=== PATIENT | female | born 1995 ===

== ENCOUNTER 2017-05-19 19:55 | Emergency (ER) | payer SELFPAY ==
[2017-05-19] MEDS ORDERED: Sodium Chloride 0.9% 1,000 ML IV STA (20:33)
--- NOTE | 2017-05-19 20:41 | ED PDOC ---
Arrival/HPI <TicoJosé Miguel - Last Filed: 05/19/17 20:53> - General Historian: Patient <Mike Woods Bob - Last Filed: 05/20/17 03:09> - General Chief Complaint: Abdominal Pain Time Seen by Provider: 05/19/17 20:14 - History of Present Illness Narrative History of Present Illness (Text): 05/19/17 20:37 21yo female with no PMHx who present with complaint of epigastric abdominal pain , nauseea, vomiting, headache x 2days. States abdominal pain is worse postprandial. She denies diarrhea, constipation, melena, hematemesis, hematochezia, chest pain, SOB, sick contact, travel. (Mike Woods A) Past Medical History - Provider Review Nursing Documentation Reviewed: Yes - Infectious Disease Hx of Infectious Diseases: None - Psychiatric Hx Substance Use: No - Anesthesia Hx Anesthesia: No <Mike Woods Bob - Last Filed: 05/20/17 03:09> Family/Social History - Physician Review Nursing Documentation Reviewed: Yes Family/Social History: Unknown Family HX Smoking Status: Never Smoked Hx Alcohol Use: No Hx Substance Use: No <Mike Woods A - Last Filed: 05/20/17 03:09> Allergies/Home Meds <Tico,José Miguel - Last Filed: 05/19/17 20:53> <Mike Woods A - Last Filed: 05/20/17 03:09> Allergies/Adverse Reactions: Allergies No Known Allergies Allergy (Verified 05/19/17 20:05) Review of Systems - Physician Review All systems were reviewed & negative as marked: Yes - Review of Systems Constitutional: Normal Eyes: Normal ENT: Normal Respiratory: Normal Cardiovascular: Normal Gastrointestinal: Abdominal Pain, Nausea, Vomiting. absent: Constipation, Diarrhea, Hematochezia, Hematemesis Genitourinary Female: Normal Musculoskeletal: Normal Skin: Normal Neurological: Normal Endocrine: Normal Hemo/Lymphatic: Normal Psychiatric: Normal <Mike Woods A - Last Filed: 05/20/17 03:09> Vital Signs Temp Pulse Resp BP Pulse Ox 05/20/17 02:33 98.8 F 81 17 106/54 L 100 05/20/17 00:03 100.4 F H 94 H 18 127/64 98 05/19/17 20:05 98.6 F 90 18 111/72 100 Medical Decision Making <José Miguel Doshi - Last Filed: 05/19/17 20:53> <Mike Woods - Last Filed: 05/20/17 03:09> ED Course and Treatment: 05/19/17 23:39 PT presented for stated history. She was hemodynamically stable in ED. Lab was DW the pt. Mild leukocytosis was noted. On re evaluation she notes that she feels much better. She will be DC home with a rx of Pepcid, Zofran and ibuprofen. Advised to f/u with the clinic. TRT ED for any new or worsening symptoms. (Mike Woods) - Lab Interpretations Lab Results: 05/19/17 21:30 05/19/17 21:30 Lab Results 05/19/17 21:30: Sodium 140, Potassium 3.8, Chloride 105, Carbon Dioxide 23, Anion Gap 17, BUN 12, Creatinine 0.6 L, Est GFR ( Amer) > 60, Est GFR ( Non-Af Amer) > 60, Random Glucose 94, Calcium 9.9, Total Bilirubin 0.7, AST 22, ALT 22, Alkaline Phosphatase 64, Total Protein 8.3, Albumin 4.9 H, Globulin 3.4 , Albumin/Globulin Ratio 1.4, Lipase 73 05/19/17 21:30: PT 17.7 H, INR 1.54 H, APTT 28.3 05/19/17 21:30: WBC 13.7 H, RBC 4.74, Hgb 13.3, Hct 40.6, MCV 85.7, MCH 28.1, MCHC 32.8, RDW 13.1, Plt Count 364, MPV 9.4, Gran % 85.5 H, Lymph % (Auto) 10.4 L, [place] % (Auto) 3.9, Eos % (Auto) 0.0 L, Baso % (Auto) 0.2, Gran # 11.73 H, Lymph # 1.4, [place] # 0.5, Eos # 0.0, Baso # 0.03 - RAD Interpretation Radiology Orders: 05/19/17 23:55 ABD & PELVIS IV CONTRAST ONLY [CT] Stat HEAD W/O CONTRAST [CT] Stat - Medication Orders Current Medication Orders: Discontinued Medications Famotidine (Pepcid) 20 mg IVP STAT STA Stop: 05/19/17 20:34 Last Admin: 05/19/17 21:48 Dose: 20 mg IVP Administration Document 05/19/17 21:48 EQ (Rec: 05/19/17 21:48 EQ [id number]) Charges for Administration # of IVP Administrations 1 Sodium Chloride (Sodium Chloride 0.9%) 1,000 mls @ 1,000 mls/hr IV .Q1H STA Stop: 05/19/17 21:32 Last Admin: 05/19/17 21:48 Dose: 1,000 mls/hr eMAR Start Stop Document 05/19/17 21:48 EQ (Rec: 05/19/17 21:49 EQ [id number]) Intravenous Solution Start Date 05/19/17 Start Time 21:49 Ketorolac Tromethamine (Toradol) 30 mg IVP STAT STA Stop: 05/19/17 23:14 Last Admin: 05/19/17 23:46 Dose: 30 mg MAR Pain Assessment Document 05/19/17 23:46 EQ (Rec: 05/19/17 23:46 EQ [id number]) Pain Reassessment Is this a pain reassessment? No Sleep Is patient sleeping during reassessment? 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 <José Miguel Doshi - Last Filed: 05/19/17 20:53> Disposition/Present on Arrival <José Miguel Doshi - Last Filed: 05/19/17 20:53> - Present on Arrival Any Indicators Present on Arrival: No History of DVT/PE: No History of Uncontrolled Diabetes: No Urinary Catheter: No History of Decub. Ulcer: No History Surgical Site Infection Following: None - Disposition Have Diagnosis and Disposition been Completed?: Yes Disposition Time: 03:10 Patient Plan: Discharge <Mike Woods - Last Filed: 05/20/17 03:09> - Disposition Diagnosis: Abdominal pain, Headache Disposition: HOME/ ROUTINE Patient Problems: Current Active Problems Problem Status Onset Abdominal pain Acute Headache Acute Condition: STABLE Discharge Instructions (ExitCare): Acute Headache (ED), Abdominal Pain (ED) Print Language: TONGAN Additional Instructions: Follow up with your doctor Follow BLAND diet Return to ED for any new or worsening symptoms Prescriptions: Famotidine [Pepcid] 20 mg PO DAILY #15 tab Ibuprofen [Motrin Tab] 600 mg PO Q6 #20 tab Ondansetron ODT [Zofran ODT] 4 mg PO Q6 #7 odt Referrals: Jeffrey Rose, [Primary Care Provider] - [place] up [place] [facility] [place] [facility] [place] - Follow up with primary Forms: [employer] (Nigerian)
[2017-05-19 22:12] LABS: BASO # 0.03 K/mm3 (0.0-2.0); BASO % 0.2 % (0.0-3.0); GRAN # 11.73 (1.4-6.5); GRAN % 85.5 % (50.0-68.0); HEMOGLOBIN 13.3 g/dL (12.0-16.0); LYMPH # 1.4 (1.2-3.4); LYMPH % 10.4 % (22.0-35.0); MEAN CELL VOLUME 85.7 fl (80.0-105.0); MEAN CORPUSCULAR HEMOGLOBIN 28.1 pg (25.0-35.0); MEAN CORPUSCULAR HGB CONC 32.8 g/dl (31.0-37.0); MEAN PLATELET VOLUME 9.4 fl (7.0-11.0); MONO # 0.5 (0.1-0.6); MONO % 3.9 % (1.0-6.0); RBC 4.74 10^6/uL (3.5-6.1); RED CELL DISTRIBUTION WIDTH 13.1 % (11.5-14.5); WHITE BLOOD COUNT 13.7 10^3/ul (4.5-11.0)
[2017-05-19 22:21] LABS: ALBUMIN 4.9 g/dL (3.0-4.8); ALT/SGPT 22 U/L (7-56); AST/SGOT 22 U/L (14-36); BLOOD UREA NITROGEN 12 mg/dL (7-21); CALCIUM 9.9 mg/dL (8.4-10.5); GFR AFRICAN-AMERICAN > 60; GFR NON-AFRICAN AMERICAN > 60; INR 1.54 (0.93-1.08); LIPASE 73 U/L (23-300); PARTIAL THROMBOPLASTIN TIME 28.3 Seconds (25.1-36.5); PROTHROMBIN TIME 17.7 SECONDS (9.4-12.5)
[2017-05-19 22:27] LABS: ALB/GLOB RATIO 1.4 (1.1-1.8)
[2017-05-20] MEDS ORDERED: Iohexol 350 MG/100 ML VIAL ONE (00:34)
[2017-05-20 02:34] VITALS: RESP 17
--- NOTE | 2017-05-20 02:52 | CT ---
EXAM: CT Head Without Intravenous Contrast CLINICAL HISTORY: 21 years old, female; Pain; Headache TECHNIQUE: Axial computed tomography images of the head/brain without intravenous contrast. All CT scans at this facility use one or more dose reduction techniques, viz.: automated exposure control; ma/kV adjustment per patient size (including targeted exams where dose is matched to indication; i.e. head); or iterative reconstruction technique. 317 images are submitted. Coronal and sagittal reformatted images were created and reviewed. COMPARISON: No relevant prior studies available. FINDINGS: Brain: Unremarkable. No hemorrhage. No significant white matter disease. No edema. Ventricles: Unremarkable. No ventriculomegaly. Bones/joints: Unremarkable. No acute fracture. Soft tissues: Unremarkable. Sinuses: Unremarkable. No acute sinusitis. Mastoid air cells: Unremarkable. No mastoid effusion. IMPRESSION: No evidence of an acute intracranial hemorrhage, midline shift or mass effect is identified.
--- NOTE | 2017-05-20 03:05 | CT ---
EXAM: CT Abdomen and Pelvis With Intravenous Contrast CLINICAL HISTORY: 21 years old, female; Pain; Abdominal pain TECHNIQUE: Axial computed tomography images of the abdomen and pelvis with intravenous contrast. All CT scans at this facility use one or more dose reduction techniques, viz.: automated exposure control; ma/kV adjustment per patient size (including targeted exams where dose is matched to indication; i.e. head); or iterative reconstruction technique. 546 images are submitted. Coronal and sagittal reformatted images were created and reviewed. CONTRAST: 94 mL of omni 350 administered intravenously. COMPARISON: No relevant prior studies available. FINDINGS: Lower thorax: No acute findings. ABDOMEN: Liver: Fatty liver. Gallbladder and bile ducts: Unremarkable. No ductal dilation. Pancreas: Unremarkable. No mass. No ductal dilation. Spleen: Unremarkable. No splenomegaly. Adrenals: Unremarkable. No mass. Kidneys and ureters: Heterogeneous nephrograms likely secondary to renal tubular ectasia. No hydronephrosis. Stomach and bowel: Diverticulosis. No obstruction. No mucosal thickening. Appendix: Normal appendix. PELVIS: Bladder: Partially distended bladder. Reproductive: Enhancing involuting left ovarian dominant follicle is seen on image 54 series 601 measuring 1.8 cm. Endometrial stripe thickening and/or fluid. ABDOMEN and PELVIS: Intraperitoneal space: Moderate amount of free pelvic fluid. No free air. Bones/joints: No acute fracture. No dislocation. Soft tissues: There is a fat-containing umbilical hernia. Vasculature: Unremarkable. No abdominal aortic aneurysm. Lymph nodes: Unremarkable. No enlarged lymph nodes. IMPRESSION: 1. Moderate amount of free pelvic fluid. 2. Enhancing involuting left ovarian dominant follicle is seen on image 54 series 601 measuring 1.8 cm.
[2017-05-20 03:42] VITALS: BP 104/62; PULSE 71; TEMP 98.1; O2SAT 98
== END 2017-05-20 03:43 | disposition home or self-care (01) ==
LOC: ED 19:55
DX: R10.9 Unspecified abdominal pain (principal); R51 Headache
CPT/HCPCS: 70450; 74177; 80053; 83690; 85025; 85610; 85730; 96374; 96375; 99285; J1885; J2405; J7040; Q9967